=== PATIENT | male | born 1975 | race Caucasian/White ===

== ENCOUNTER 2018-10-21 13:43 | Emergency (ER) | payer BC ==
[~2018-10-21] VITALS: Ht 198.1 cm; Wt 160.0 kg
[~2018-10-21 13:43] MED LIST: ACULAR0.5 % OU; AMOXICILLIN875 MG OR
[2018-10-21 15:20] VITALS: BP 155/87
== END 2018-10-21 15:20 | disposition home or self-care (01) | DRG 563 ==
LOC: ED 13:43
DX: S93.401A Sprain of unspecified ligament of right ankle, initial encounter (principal); I10 Essential (primary) hypertension; W17.2XXA Fall into hole, initial encounter; Y92.009 Unspecified place in unspecified non-institutional (private) residence as the place of occurrence of the external cause